=== PATIENT | male | born 1970 | race Caucasian/White ===

== ENCOUNTER 2016-07-11 15:28 | Emergency (ER) | payer MEDICAID, OTHER ==
[~2016-07-11] VITALS: Ht 167.6 cm; Wt 72.6 kg
[~2016-07-11 15:28] MED LIST: DIPH25TA53 PO; [UNRECOGNIZED DRUG - CODE] TOP
[2016-07-11 15:39] VITALS: BP 129/89
--- NOTE | 2016-07-11 15:49 | NUR ---
Patient taken to XRAY from ED lobby via wheelchair by senthli, accompanied by family.
--- NOTE | 2016-07-11 15:51 | NUR ---
Pt taken to x-ray.
--- NOTE | 2016-07-11 15:56 | NUR ---
Patient returned from XRAY, transferred to bed 7. FILM EDITOR evaluating patient at bedside.
--- NOTE | 2016-07-11 16:00 | NUR ---
45/M presents to ED for evaluation of right foot pain. Pt hit foot while moving aluminum glass around 1400. Patient has swelling, bruising to right foot. CMS intact. Patient c/o 8/10 pain to right foot. Pt ambulates with limp to right side, w/c assist preferred. AOX4, clear speech. VSS. No signs of distress noted.
--- NOTE | 2016-07-11 16:14 | NUR ---
Patient being evaluated by physician at bedside.
[2016-07-11 16:32] VITALS: BP 127/81
--- NOTE | 2016-07-11 16:32 | NUR ---
Patient discharged with v/s stable. Written and verbal after care instructions given and explained. Patient alert, oriented and verbalized understanding of instructions. Ambulatory with steady gait. All questions addressed prior to discharge. ID band removed. Patient advised to follow up with PMD. Rx of MOTRIN,NORCO given. Patient educated on indication of medication including possible reaction and side effects. Opportunity to ask questions provided and answered.
--- NOTE | 2016-07-11 16:32 | NUR ---
Chart checked and completed. The patient's care was reviewed and supervised by Sulema Vale RN.
== END 2016-07-11 16:32 | disposition home or self-care (01) ==
LOC: MED 15:28
DX: S90.31XA Contusion of right foot, initial encounter (principal); Z88.6 Allergy status to analgesic agent; W20.8XXA Other cause of strike by thrown, projected or falling object, initial encounter; Y93.89 Activity, other specified; Y92.89 Other specified places as the place of occurrence of the external cause; Y99.8 Other external cause status
CPT/HCPCS: 73630; 99283; 99284